=== PATIENT | male | born 2005 | race Two or more races ===

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

== ENCOUNTER 2024-11-22 03:47 | Emergency (ER) | payer SELFPAY ==
[~2024-11-22] VITALS: Ht 188 cm; Wt 120.4 kg
[~2024-11-22 03:47] MED LIST: ACE3T PO; IBUP-1455 PO
--- NOTE | 2024-11-22 03:55 | ED.PDOC ---
History of Present Illness HPI Comments 19 year old male came to ER due to dental pain. Patient complaining of right upper dental pain for the past 3 days. Went to Urgent Care and was prescribed Amoxicillin and Ibuprofen but offers slight relief, Denies any fever. Patient has yet to see a dentist about this issue Chief Complaint: Dental Pain Time Seen by MD: 04:00 Primary Care Provider: JESS Yee Notes: Nurses Notes Allergies: Coded Allergies: Tramadol (Verified Allergy, Unknown, 02/18/21) Home Meds Active Scripts Acetaminophen W/ Codeine (Tylenol W/Cod #3) 1 Tab Tb, 1 TAB PO Q6HP PRN, #20 TAB Prov:SIMÓN DANIELLE PAC 11/01/23 Ibuprofen Micronized (Ibuprofen) 800 Mg Tab, 800 MG PO Q8HP PRN, #30 TAB Prov:SIMÓN DANIELLE PAC 11/01/23 Information Source: Patient Mode of Arrival: EMS Severity: Moderate Timing: Minutes Duration: Since onset Prehospital treatment: None Past Medical History PAST MEDICAL HISTORY: Denies Surgical History: Denies all surgeries Family History Family History: Reviewed,noncontributory to illness Social History Smoker: Non-Smoker Alcohol: Rarely Drugs: Denies Drug Use Lives In: Home Constitutional: denies: chills, diaphoresis, fatigue, fever, malaise, sweats, weakness, others EENTM: reports: others (right upper dental pain); denies: blurred vision, double vision, ear bleeding, ear discharge, ear drainage, ear pain, ear ringing, eye pain, eye redness, hearing loss, mouth pain, mouth swelling, nasal discharge, nose bleeding, nose congestion, nose pain, photophobia, tearing, throat pain, throat swelling, voice changes Respiratory: denies: cough, hemoptysis, orthopnea, SOB at rest, shortness of breath, SOB with excertion, stridor, wheezing, others Cardiovascular: denies: chest pain, dizzy spells, diaphoresis, Dyspnea on exertion, edema, irregular heart beat, left arm pain, lightheadedness, palpitations, PND, syncope, others Gastrointestinal: denies: abdomen distended, abdominal pain, blood streaked bowels, constipated, diarrhea, dysphagia, difficulty swallowing, hematemesis, melena, nausea, poor appetite, poor fluid intake, rectal bleeding, rectal pain, vomiting, others Genitourinary: denies: burning, dysuria, flank pain, frequency, hematuria, incontinence, penile discharge, penile sore, pain, testicle pain, testicle swelling, urgency, others Neurological: denies: dizziness, fainting, headache, left sided numbness, left sided weakness, numbness, paresthesia, pre-existing deficit, right sided numbness, right sided weakness, seizure, speech problems, tingling, tremors, weakness, others Musculoskeletal: denies: back pain, gout, joint pain, joint swelling, muscle pain, muscle stiffness, neck pain, others Integumetry: denies: bruises, change in color, change in hair/nails, dryness, laceration, lesions, lumps, rash, wounds, others Allergic/Immunocompromised: denies: Difficulty Healing, Frequent Infections, Hives, Itching, others Hematologic/Lymphatic: denies: anemia, blood clots, easy bleeding, easy bruising, swollen glands, others Endocrine: denies: excessive hunger, excessive sweating, excessive thirst, excessive urination, flushing, intolerance to cold, intolerance to heat, unexplained weight gain, unexplained weight loss, others Psychiatric: denies: anxiety, bipolar disorder, depression, hopeless, panic disorder, schizophrenia, sleepless, suicidal, others Physical Exam General Appearance: No Apparent Distress, Normal HEENT: Pharynx Normal, TMs Normal, Other (dental caries, right upper premolar) Neck: Full Range of Motion, Non-Tender, Normal, Normal Inspection Respiratory: Chest Non-Tender, Lungs Clear, No Accessory Muscle Use, No Respiratory Distress, Normal Breath Sounds Cardiovascular: No Edema, No JVD, No Murmur, No Gallop, Normal Peripheral Pulses, Regular Rate/Rhythm Breast Exam: Deferred Gastrointestinal: No Organomegaly, Non Tender, No Pulsatile Mass, Normal Bowel Sounds, Soft Genitalia: Deferred Pelvic: Deferred Rectal: Deferred Extremities: No calf tenderness, Normal capillary refill, Normal inspection, Normal range of motion, Non-tender, No pedal edema Musculoskeletal : Apperance: Normal Neurologic: Alert, 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 Was a procedure done?: No Differential Dx Considerations may include: dental caries, dental pain, dental abscess, gingivitis, facial cellulitis X-Ray, Labs, Meds, VS Vital Signs Date Time Temp Pulse Resp B/P (MAP) Pulse Ox O2 Delivery O2 Flow Rate FiO2 11/22/24 03:49 98.3 60 16 130/81 (97) 99 98.3 Time of 1ST Reevaluation: 03:53 Reevaluation 1ST: Unchanged Patient Education/Counseling: Diagnosis, Treatment, Prognosis, Need For Follow Up Family Education/Counseling: No Family Present Additional Information CPrevious visit documents reviewed: ED physician notes November 01, 2023 The following tests were ordered, and results were reviewed by me: Additional Information was gathered from interviewing the following independent historians: I reviewed and agreed with the following test results read by other providers: I discussed treatment and results with medical personnel and: Patient Comprehensive systems review obtained and negative except for what is stated in the HPI. Departure 1 Departure Time of Disposition: 04:03 Impression: Primary Impression: Dental caries Disposition: HOME / SELF CARE / HOMELESS Condition: Good e-Prescriptions Hydrocodone-Acetaminophen (Hydrocodone Bitartrate/AC 5-325 mg) 1 Tab Tab 1 TAB PO Q8HP PRN for 3 Days, #9 TAB Prov: BRADFORD BARNEY MD 11/22/24 Discharged With: Self Critical Care Note Critical Care Time?: No Stability Stability form required: No Heart Score Heart Score: Heart Score Response (Comments) Value History N/A 0 EKG N/A 0 Age N/A 0 Risk Factors N/A 0 Troponin N/A 0 Total 0 I personally scribed for BRADFORD BARNEY MD ([email or web address]) on 11/22/24 at 03:55. Electronically submitted by Jim Jin ([email or web address]). I personally scribed for BRADFORD BARNEY MD ([email or web address]) on 11/22/24 at 04:01. Electronically submitted by Jim Jin ([email or web address]). BRADFORD BARNEY MD Nov 22, 2024 03:55
[2024-11-22] MEDS ORDERED: HYDR-4902 PO (04:05)
[2024-11-22 04:11] VITALS: BP 130/81; PULSE 60; RESP 16; TEMP 98.3; O2SAT 99
[2024-11-22] MEDS ORDERED: CLIN1CAP70 PO (14:06)
[2024-11-22] MEDS ORDERED: GABA300T4 PO (14:06)
== END 2024-11-22 04:11 | disposition home or self-care (01) ==
LOC: ER 03:47
DX: K02.9 Dental caries, unspecified (principal); Z88.5 Allergy status to narcotic agent

== ENCOUNTER 2024-11-22 12:46 | Emergency (ER) | payer MEDICAID, SELFPAY ==
[~2024-11-22] VITALS: Ht 188 cm; Wt 122.0 kg
[~2024-11-22 12:46] MED LIST changes: +HYDR-4902 PO
[2024-11-22 12:52] VITALS: BP 137/86; PULSE 67; RESP 16; TEMP 98.3; O2SAT 96
[2024-11-22] MEDS ORDERED: GABA300T4 PO (14:06)
[2024-11-22] MEDS ORDERED: CLIN1CAP70 PO (14:06)
--- NOTE | 2024-11-22 14:08 | ED.PDOC ---
Eye-HPI HPI Comments 19 y.o male presents to the ED for a chief complaint of tooth pain that started 4 days ago. Patient reports pain is localized to the right upper molar tooth, states sharp, constant 10/10 pain that has no alleviating factors. Patient was seen at this ED at 0400 today, was given Amoxicillin and pain medication prescription but states no relief when taking. Patient has an upcoming follow up dentist appointment s/p cavity diagnose. . He denies any fever, chills, tooth trauma. Chief Complaint: Tooth Pain Time Seen by MD: 14:00 Primary Care Provider: JESS Reviewed Notes: Nurses Notes, Medications, Allergies Allergies: Coded Allergies: Tramadol (Verified Allergy, Unknown, 02/18/21) Home Meds Active Scripts Gabapentin (Once-Daily) (Gabapentin) 300 Mg Tab, 300 MG PO TID PRN for 10 Days, #30 TAB Prov:FERNANDO PAIGE MD 11/22/24 Clindamycin Hcl (Clindamycin Hcl) 300 Mg Cap, 1 CAP PO BID for 10 Days, #20 CAP Prov:FERNANDO PAIGE MD 11/22/24 Hydrocodone-Acetaminophen (Hydrocodone Bitartrate/AC 5-325 mg) 1 Tab Tab, 1 TAB PO Q8HP PRN for 3 Days, #9 TAB Prov:BRADFORD BARNEY MD 11/22/24 Acetaminophen W/ Codeine (Tylenol W/Cod #3) 1 Tab Tb, 1 TAB PO Q6HP PRN, #20 TAB Prov:SIMÓN DANIELLE PAC 11/01/23 Ibuprofen Micronized (Ibuprofen) 800 Mg Tab, 800 MG PO Q8HP PRN, #30 TAB Prov:SIMÓN DANIELLE PAC 11/01/23 Information Source: Patient Mode of Arrival: Ambulatory Timing: Days (4) Duration: Since onset Quality: Pain Mouth: Right, Upper, Molar, Tender, Swelling Associated signs and symptoms: Tooth Pain Past Medical History PAST MEDICAL HISTORY: Denies Surgical History: Denies all surgeries Family History Family History: Reviewed,noncontributory to illness Social History Smoker: Non-Smoker Alcohol: Rarely Drugs: Denies Drug Use Lives In: Home Constitutional: denies: chills, diaphoresis, fatigue, fever, malaise, sweats, weakness, others EENTM: reports: others (tooth pain ); denies: blurred vision, double vision, ear bleeding, ear discharge, ear drainage, ear pain, ear ringing, eye pain, eye redness, hearing loss, mouth pain, mouth swelling, nasal discharge, nose bleeding, nose congestion, nose pain, photophobia, tearing, throat pain, throat swelling, voice changes Respiratory: denies: cough, hemoptysis, orthopnea, SOB at rest, shortness of breath, SOB with excertion, stridor, wheezing, others Cardiovascular: denies: chest pain, dizzy spells, diaphoresis, Dyspnea on exertion, edema, irregular heart beat, left arm pain, lightheadedness, palpitations, PND, syncope, others Gastrointestinal: denies: abdomen distended, abdominal pain, blood streaked bowels, constipated, diarrhea, dysphagia, difficulty swallowing, hematemesis, melena, nausea, poor appetite, poor fluid intake, rectal bleeding, rectal pain, vomiting, others Genitourinary: denies: burning, dysuria, flank pain, frequency, hematuria, incontinence, penile discharge, penile sore, pain, testicle pain, testicle swelling, urgency, others Neurological: denies: dizziness, fainting, headache, left sided numbness, left sided weakness, numbness, paresthesia, pre-existing deficit, right sided numbness, right sided weakness, seizure, speech problems, tingling, tremors, weakness, others Musculoskeletal: denies: back pain, gout, joint pain, joint swelling, muscle pain, muscle stiffness, neck pain, others Integumetry: denies: bruises, change in color, change in hair/nails, dryness, laceration, lesions, lumps, rash, wounds, others Allergic/Immunocompromised: denies: Difficulty Healing, Frequent Infections, H shannon, Itching, others Hematologic/Lymphatic: denies: anemia, blood clots, easy bleeding, easy bruising, swollen glands, others Endocrine: denies: excessive hunger, excessive sweating, excessive thirst, excessive urination, flushing, intolerance to cold, intolerance to heat, unexplained weight gain, unexplained weight loss, others Psychiatric: denies: anxiety, bipolar disorder, depression, hopeless, panic disorder, schizophrenia, sleepless, suicidal, others All Other Systems: Reviewed and Negative Physical Exam General Appearance: Mild Distress HEENT: Other (right upper molar discomfort/eroded with a tender base ) Neck: Full Range of Motion, Non-Tender, Normal, Normal Inspection Respiratory: Chest Non-Tender, Lungs Clear, No Accessory Muscle Use, No Respiratory Distress, Normal Breath Sounds Cardiovascular: No Edema, No JVD, No Murmur, No Gallop, Normal Peripheral Pulses, Regular Rate/Rhythm Breast Exam: Deferred Gastrointestinal: No Organomegaly, Non Tender, No Pulsatile Mass, Normal Bowel Sounds, Soft Genitalia: Deferred Pelvic: Deferred Rectal: Deferred Extremities: No calf tenderness, Normal capillary refill, Normal inspection, Normal range of motion, Non-tender, No pedal edema Musculoskeletal : Apperance: Normal Neurologic: Alert, dancing teacher II-XII 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 Was a procedure done?: No EENT DIFF Eye: N/A Ear: Dental X-Ray, Labs, Meds, VS Vital Signs Date Time Temp Pulse Resp B/P (MAP) Pulse Ox O2 Delivery O2 Flow Rate FiO2 11/22/24 12:52 98.3 67 16 137/86 (103) 96 98.3 Current Medications Medications (Trade) Dose Ordered Sig/Cristiano Route Start Time Stop Time Status Last Admin Clindamycin HCl (Cleocin Capsule) 300 mg ONCE ONCE PO 11/22/24 14:15 11/22/24 14:16 DC 11/22/24 14:39 Oxycodone/ Acetaminophen (Percocet 5/ 325MG Tablet) 2 tab ONCE ONCE PO 11/22/24 14:15 11/22/24 14:16 DC 11/22/24 14:39 Time of 1ST Reevaluation: 14:03 Reevaluation 1ST: Unchanged Patient Education/Counseling: Diagnosis, Treatment, Prognosis Family Education/Counseling: No Family Present Departure 1 Departure Time of Disposition: 14:30 Impression: Primary Impression: Dental abscess Additional Impression: Dental caries Disposition: HOME / SELF CARE / HOMELESS Condition: Stable e-Prescriptions Gabapentin (Once-Daily) (Gabapentin) 300 Mg Tab 300 MG PO TID PRN for 10 Days, #30 TAB Prov: FERNANDO PAIGE MD 11/22/24 Clindamycin Hcl (Clindamycin Hcl) 300 Mg Cap 1 CAP PO BID for 10 Days, #20 CAP Prov: FERNANDO PAIGE MD 11/22/24 Discharged With: Self Critical Care Note Critical Care Time?: No Stability Stability form required: No I personally scribed for FERNANDO PAIGE MD ([email or web address]) on 11/22/24 at 14:08. Electronically submitted by Myrna Malin ([facility]). FERNANDO PAIGE MD Nov 22, 2024 14:08
[2024-11-22] MEDS: CLINDAMYCIN HCL 150 MG CAP PO ONE (14:39)
[2024-11-22] MEDS: OXYCODONE W/ ACETAMINOPHEN 5/325MG TABLET PO ONE (14:39)
== END 2024-11-22 14:43 | disposition home or self-care (01) ==
LOC: ER 12:46
DX: K04.7 Periapical abscess without sinus (principal); K02.9 Dental caries, unspecified; Z88.7 Allergy status to serum and vaccine

== ENCOUNTER 2024-11-23 01:09 | Emergency (ER) | payer SELFPAY ==
[~2024-11-23] VITALS: Ht 188 cm; Wt 119.3 kg
[~2024-11-23 01:09] MED LIST changes: +CLIN1CAP70 PO; +GABA300T4 PO
--- NOTE | 2024-11-23 02:41 | ED.PDOC ---
Eye-HPI HPI Comments PT C/O 06/04 TOOTH PAIN X 3 DAYS. PT HAS BEEN SEEN IN ER 3 TIMES IN THE LAST 24HRS FOR SAME COMPLAINT. PT DOES HAVE A DENTIST APPOINTMENT THIS AM BUT IS REPORTING THAT THE PAIN IS UNBEARABLE AT THIS TIME. PT A&OX4, VSS, RR EVEN AND UNLABORED ON RA. Chief Complaint: Tooth Pain Time Seen by MD: 01:12 Primary Care Provider: JESS Yee Notes: Nurses Notes, Medications, Allergies Allergies: Coded Allergies: Tramadol (Verified Allergy, Unknown, 02/18/21) Home Meds Active Scripts Gabapentin (Once-Daily) (Gabapentin) 300 Mg Tab, 300 MG PO TID PRN for 10 Days, #30 TAB Prov:FERNANDO PAIGE MD 11/22/24 Clindamycin Hcl (Clindamycin Hcl) 300 Mg Cap, 1 CAP PO BID for 10 Days, #20 CAP Prov:FERNANDO PAIGE MD 11/22/24 Hydrocodone-Acetaminophen (Hydrocodone Bitartrate/AC 5-325 mg) 1 Tab Tab, 1 TAB PO Q8HP PRN for 3 Days, #9 TAB Prov:BRADFORD BARNEY MD 11/22/24 Acetaminophen W/ Codeine (Tylenol W/Cod #3) 1 Tab Tb, 1 TAB PO Q6HP PRN, #20 TAB Prov:SIMÓN DANIELLE PAC 11/01/23 Ibuprofen Micronized (Ibuprofen) 800 Mg Tab, 800 MG PO Q8HP PRN, #30 TAB Prov:SIMÓN DANIELLE PAC 11/01/23 Information Source: Patient Mode of Arrival: Ambulatory Past Medical History PAST MEDICAL HISTORY: Denies Surgical History: Denies all surgeries Family History Family History: Reviewed,noncontributory to illness Social History Smoker: Non-Smoker Alcohol: Rarely Drugs: Denies Drug Use Lives In: Home Constitutional: denies: chills, diaphoresis, fatigue, fever, malaise, sweats, weakness, others EENTM: reports: others (DENTAL PAIN ); denies: blurred vision, double vision, ear bleeding, ear discharge, ear drainage, ear pain, ear ringing, eye pain, eye redness, hearing loss, mouth pain, mouth swelling, nasal discharge, nose bleeding, nose congestion, nose pain, photophobia, tearing, throat pain, throat swelling, voice changes Respiratory: denies: cough, hemoptysis, orthopnea, SOB at rest, shortness of breath, SOB with excertion, stridor, wheezing, others Cardiovascular: denies: chest pain, dizzy spells, diaphoresis, Dyspnea on exertion, edema, irregular heart beat, left arm pain, lightheadedness, palpitations, PND, syncope, others Gastrointestinal: denies: abdomen distended, abdominal pain, blood streaked bowels, constipated, diarrhea, dysphagia, difficulty swallowing, hematemesis, melena, nausea, poor appetite, poor fluid intake, rectal bleeding, rectal pain, vomiting, others Genitourinary: denies: burning, dysuria, flank pain, frequency, hematuria, incontinence, penile discharge, penile sore, pain, testicle pain, testicle swelling, urgency, others Neurological: denies: dizziness, fainting, headache, left sided numbness, left sided weakness, numbness, paresthesia, pre-existing deficit, right sided numbness, right sided weakness, seizure, speech problems, tingling, tremors, weakness, others Musculoskeletal: denies: back pain, gout, joint pain, joint swelling, muscle pain, muscle stiffness, neck pain, others Integumetry: denies: bruises, change in color, change in hair/nails, dryness, laceration, lesions, lumps, rash, wounds, others Allergic/Immunocompromised: denies: Difficulty Healing, Frequent Infections, Hives, Itching, others Hematologic/Lymphatic: denies: anemia, blood clots, easy bleeding, easy bruising, swollen glands, others Endocrine: denies: excessive hunger, excessive sweating, excessive thirst, excessive urination, flushing, intolerance to cold, intolerance to heat, unexplained weight gain, unexplained weight loss, others Psychiatric: denies: anxiety, bipolar disorder, depression, hopeless, panic dis order, schizophrenia, sleepless, suicidal, others Physical Exam General Appearance: No Apparent Distress, Normal HEENT: Pharynx Normal, Other (LEFT UPPER MOLAR NUMBER 26 WITH MODERATE DECAY NOTED VISIBLE ABSCESS OR DRAINAGE) Neck: Full Range of Motion, Non-Tender Respiratory: Chest Non-Tender, Lungs Clear, No Respiratory Distress, Normal Breath Sounds Cardiovascular: No Edema, No JVD, No Murmur, No Gallop, Normal Peripheral Pulses, Regular Rate/Rhythm Breast Exam: Deferred Gastrointestinal: Non Tender, Soft Genitalia: Deferred Pelvic: Deferred Rectal: Deferred Extremities: Normal capillary refill, Normal inspection, Normal range of mo tion, Non-tender, No pedal edema Musculoskeletal : Apperance: Normal Neurologic: Alert, origination specialist II-XII 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 Was a procedure done?: No EENT DIFF Eye: N/A Ear: N/A Nose: N/A Mouth: N/A Sore Throat: Ramana's Angina X-Ray, Labs, Meds, VS Vital Signs Date Time Temp Pulse Resp B/P (MAP) Pulse Ox O2 Delivery O2 Flow Rate FiO2 11/23/24 01:32 98.4 62 18 145/94 (111) 96 98.4 X-Ray, Labs, Meds, VS Comment PATIENT GIVEN NORCO 10 MG P.O., TORADOL 60 MG IM, AND HURRICAINE SPRAY REPORTS RELIEF IN SYMPTOMS IN PAIN REQUESTING DISCHARGE AT THIS TIME. ADVISED THE IMPORTANCE TO CONTINUE THE ANTIBIOTICS THAT WERE PRESCRIBED TAKE DIRECTED. ALSO ADVISED OF THE IMPORTANCE TO FOLLOW UP WITH DENTAL FOR RESOLUTION. ADVISED HIM TO CALL IN THE MORNING SCHEDULE AN APPOINTMENT. ER RETURN PRECAUTIONS GIVEN PATIENT INDICATES UNDERSTANDING AGREES WITH DISCHARGE PLAN OF CARE. Time of 1ST Reevaluation: 02:53 Reevaluation 1ST: Improved Patient Education/Counseling: Diagnosis, Treatment, Prognosis, Need For Follow Up Family Education/Counseling: Diagnosis, Treatment, Prognosis, Need For Follow Up Departure 1 Departure Time of Disposition: 02:53 Impression: Primary Impression: Dental abscess Additional Impression: Dental caries Disposition: 01 HOME / SELF CARE / HOMELESS Condition: Stable Discharged With: Self Critical Care Note Critical Care Time?: No Stability Stability form required: CORONA Mejía Nov 23, 2024 02:41
[2024-11-23] MEDS: BENZOCAINE (DENTAL) 20 % SPRAY 60ML MT ONE (02:59)
[2024-11-23] MEDS: HYDROcodone-ACET 5/325MG TAB PO ONE (02:59)
[2024-11-23] MEDS: KETOROLAC TROMETH 60MG/2ML VIAL IM ONE (02:59)
[2024-11-23 03:07] VITALS: BP 132/80; PULSE 64; RESP 19; TEMP 98.2; O2SAT 97
== END 2024-11-23 03:25 | disposition home or self-care (01) ==
LOC: ER 01:09
DX: K04.7 Periapical abscess without sinus (principal); K02.9 Dental caries, unspecified; Z79.899 Other long term (current) drug therapy; Z88.5 Allergy status to narcotic agent
CPT/HCPCS: 96372; 99283; J1885

== ENCOUNTER 2024-11-23 18:16 | Emergency (ER) | payer SELFPAY ==
[~2024-11-23] VITALS: Ht 190.5 cm; Wt 119.0 kg
[2024-11-23 20:33] VITALS: BP 132/89; PULSE 73; RESP 20; TEMP 98; O2SAT 95
--- NOTE | 2024-11-23 20:46 | ED.PDOC ---
Eye-HPI HPI Comments 19 y.o male presents to the ED for a chief complaint of tooth pain. Patient was seen multiple times for this complaint over the past 24-48 hours, states he had his tooth extracted today at [id number] and then took two [place] 5mg each at 1630- 1700. Patient presents with active pain, states he is unable to refill pain medication dentist prescribed as he is not yet up for medication refill. Patient had a prescription of [place] 3 days ago 10 tablets in which he finished already. No other new complaints or symptoms reported. Chief Complaint: Tooth Pain Time Seen by MD: 18:25 Primary Care Provider: JESS Yee Notes: Nurses Notes, Medications, Allergies Allergies: Coded Allergies: Tramadol (Verified Allergy, Unknown, 02/18/21) Home Meds Active Scripts Gabapentin (Once-Daily) (Gabapentin) 300 Mg Tab, 300 MG PO TID PRN for 10 Days, #30 TAB Prov:FERNANDO PAIGE MD 11/22/24 Clindamycin Hcl (Clindamycin Hcl) 300 Mg Cap, 1 CAP PO BID for 10 Days, #20 CAP Prov:FERNANDO PAIGE MD 11/22/24 Hydrocodone-Acetaminophen (Hydrocodone Bitartrate/AC 5-325 mg) 1 Tab Tab, 1 TAB PO Q8HP PRN for 3 Days, #9 TAB Prov:BRADFORD BARNEY MD 11/22/24 Acetaminophen W/ Codeine (Tylenol W/Cod #3) 1 Tab Tb, 1 TAB PO Q6HP PRN, #20 TAB Prov:SIMÓN DANIELLE PAC 11/01/23 Ibuprofen Micronized (Ibuprofen) 800 Mg Tab, 800 MG PO Q8HP PRN, #30 TAB Prov:SIMÓN DANIELLE PAC 11/01/23 Information Source: Patient Mode of Arrival: Ambulatory Timing: Hours Quality: Pain Mouth: Tender Modifying factors: Analgesics used Associated signs and symptoms: Tooth Pain Past Medical History PAST MEDICAL HISTORY: Denies Surgical History: Denies all surgeries Family History Family History: Reviewed,noncontributory to illness Social History Smoker: Non-Smoker Alcohol: Rarely Drugs: Denies Drug Use Lives In: Home Constitutional: denies: chills, diaphoresis, fatigue, fever, malaise, sweats, weakness, others EENTM: reports: others (tooth pain ); denies: blurred vision, double vision, ear bleeding, ear discharge, ear drainage, ear pain, ear ringing, eye pain, eye redness, hearing loss, mouth pain, mouth swelling, nasal discharge, nose bleeding, nose congestion, nose pain, photophobia, tearing, throat pain, throat swelling, voice changes Respiratory: denies: cough, hemoptysis, orthopnea, SOB at rest, shortness of breath, SOB with excertion, stridor, wheezing, others Cardiovascular: denies: chest pain, dizzy spells, diaphoresis, Dyspnea on exertion, edema, irregular heart beat, left arm pain, lightheadedness, palpitat ions, PND, syncope, others Gastrointestinal: denies: abdomen distended, abdominal pain, blood streaked bow els, constipated, diarrhea, dysphagia, difficulty swallowing, hematemesis, melena, nausea, poor appetite, poor fluid intake, rectal bleeding, rectal pain, vomiting, others Genitourinary: denies: burning, dysuria, flank pain, frequency, hematuria, incontinence, penile discharge, penile sore, pain, testicle pain, testicle swelling, urgency, others Neurological: denies: dizziness, fainting, headache, left sided numbness, left sided weakness, numbness, paresthesia, pre-existing deficit, right sided numbness, right sided weakness, seizure, speech problems, tingling, tremors, weakness, others Musculoskeletal: denies: back pain, gout, joint pain, joint swelling, muscle pain, muscle stiffness, neck pain, others Integumetry: denies: bruises, change in color, change in hair/nails, dryness, laceration, lesions, lumps, rash, wounds, others Allergic/Immunocompromised: denies: Difficulty Healing, Frequent Infections, Hives, Itching, others Hematologic/Lymphatic: denies: anemia, blood clots, easy bleeding, easy bruising, swollen glands, others Endocrine: denies: excessive hunger, excessive sweating, excessive thirst, excessive urination, flushing, intolerance to cold, intolerance to heat, unexplained weight gain, unexplained weight loss, others Psychiatric: denies: anxiety, bipolar disorder, depression, hopeless, panic disorder, schizophrenia, sleepless, suicidal, others All Other Systems: Reviewed and Negative Physical Exam General Appearance: No Apparent Distress, Normal HEENT: Other ( (DENTAL PAIN ); ) Neck: Full Range of Motion, Non-Tender, Normal, Normal Inspection Respiratory: Chest Non-Tender, Lungs Clear, No Accessory Muscle Use, No Respiratory Distress, Normal Breath Sounds Cardiovascular: No Edema, No JVD, No Murmur, No Gallop, Normal Peripheral Pulses, Regular Rate/Rhythm Breast Exam: Deferred Gastrointestinal: No Organomegaly, Non Tender, No Pulsatile Mass, Normal Bowel Sounds, Soft Genitalia: Deferred Pelvic: Deferred Rectal: Deferred Extremities: No calf tenderness, Normal capillary refill, Normal inspection, Normal range of motion, Non-tender, No pedal edema Musculoskeletal : Apperance: Normal Neurologic: Alert, senior information developer II-XII 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 Was a procedure done?: No EENT DIFF Eye: N/A Ear: Dental Sore Throat: Peritonsillar Abscess, Peritonsillar Cellulitis X-Ray, Labs, Meds, VS Vital Signs Date Time Temp Pulse Resp B/P (MAP) Pulse Ox O2 Delivery O2 Flow Rate FiO2 11/23/24 18:30 97.9 81 18 138/87 (104) 97 97.9 X-Ray, Labs, Meds, VS Comment PATIENT GIVEN PERCOCET 5 MG AND TORADOL 60 MG IM. PATIENT REPORTS IMPROVEMENT IN PAIN REQUESTING DISCHARGE AT THIS TIME. ADVISED TO GO STRAIGHT HOME REST INCREASE P.O. FLUIDS ADVISED TO CALL IN THE MORNING FOLLOW UP WITH A DENTIST. ADVISED ON ER RETURN PRECAUTIONS PATIENT INDICATES UNDERSTANDING AGREES WITH DISCHARGE PLAN OF CARE. Time of 1ST Reevaluation: 20:46 Reevaluation 1ST: Unchanged Patient Education/Counseling: Diagnosis, Treatment, Prognosis Family Education/Counseling: No Family Present Departure 1 Departure Time of Disposition: 20:52 Impression: Primary Impression: Status post tooth extraction Disposition: 01 HOME / SELF CARE / HOMELESS Condition: Stable Discharged With: Friend Critical Care Note Critical Care Time?: No Stability Stability form required: No Heart Score Heart Score: Heart Score Response (Comments) Value History N/A 0 EKG N/A 0 Age N/A 0 Risk Factors N/A 0 Troponin N/A 0 Total 0 I personally scribed for AUDREY HARTMANN DO ([facility] on 11/23/24 at 20:50. Electronically submitted by Myrna Malin ([facility]). CORONA ROWAN Nov 23, 2024 20:46 AUDREY HARTMANN DO Nov 23, 2024 20:50
[2024-11-23] MEDS: OXYCODONE W/ ACETAMINOPHEN 5/325MG TABLET PO ONE (21:07)
[2024-11-23] MEDS: KETOROLAC TROMETH 60MG/2ML VIAL IM ONE (21:08)
== END 2024-11-23 21:45 | disposition home or self-care (01) ==
LOC: ER 18:16
DX: K08.409 Partial loss of teeth, unspecified cause, unspecified class (principal); Z88.5 Allergy status to narcotic agent; Z76.0 Encounter for issue of repeat prescription
CPT/HCPCS: 96372; 99283; J1885